=== PATIENT | male | born 1970 | race Two or more races ===

== ENCOUNTER 2024-06-09 12:07 | Inpatient (IN) | payer MEDICAID ==
[~2024-06-09] VITALS: Ht 182.9 cm; Wt 90.7 kg
[2024-06-09] MEDS ORDERED: ONDANSETRON 4 MG/2 ML VIAL ONE (13:08)
[2024-06-09] MEDS ORDERED: MORPHINE SULFATE 4 MG/1 ML DISP.SYRIN ONE (13:08)
[2024-06-09] MEDS: IV NORMAL SALINE 1000 ML BAG IV ONE (13:25)
[2024-06-09] MEDS: ONDANSETRON 4 MG/2 ML VIAL IV ONE (13:26)
[2024-06-09] MEDS: MORPHINE SULFATE 2 MG/1 ML DISP.SYRIN IV ONE (13:26)
[2024-06-09 14:01] LABS: CALCIUM 9.3 mg/dL (8.5-10.1); CREATININE 0.7 mg/dL (0.6-1.3); POTASSIUM 3.5 mmol/L (3.5-5.1)
[2024-06-09 14:07] LABS: BILIRUBIN,DIRECT 0.2 mg/dL (0.0-0.2); BILIRUBIN,TOTAL 0.4 mg/dL (0.2-1.0); TOTAL PROTEIN, SERUM 7.8 g/dL (6.4-8.2)
[2024-06-09 14:08] LABS: BASOPHILS # (AUTO) 0.1 K/UL (0.0-0.2); BASOPHILS % (AUTO) 1.3 % (0.0-2.0); DIFFERENTIAL COMMENT 0; EOSINOPHILS # (AUTO) 0.2 K/uL (0.0-0.7); EOSINOPHILS % (AUTO) 1.9 % (0.0-7.0); HEMATOCRIT 31.2 % (36.7-47.1); HEMOGLOBIN 10.4 g/dL (12.5-16.3); LYMPHOCYTES % (AUTO) 22.9 % (20.5-51.5); MEAN CORPUSCULAR HEMOGLOBIN 26.6 uug (23.8-33.4); MEAN CORPUSCULAR HGB CONC 33 g/dL (32.5-36.3); MEAN CORPUSCULAR VOLUME 79.9 fL (73.0-96.2); MONOCYTES # (AUTO) 0.9 K/uL (0.1-1.30); MONOCYTES % (AUTO) 9.8 % (0.0-11.0); NEUTROPHILS # (AUTO) 5.7 K/uL (1.8-8.9); NEUTROPHILS % (AUTO) 64.1 % (38.5-71.5); RED CELL DISTRIBUTION WIDTH 17.9 % (12.1-16.2); WHITE BLOOD COUNT (AUTO) 8.8 K/uL (3.6-10.2)
[2024-06-09 14:39] LABS: *BILIRUBIN,URIN NEGATIVE (NEGATIVE); *BLOOD, URINE NEGATIVE (NEGATIVE); *CLARITY,URINE CLEAR (CLEAR); *COLOR,URINE YELLOW (YELLOW); *KETONES,URINE NEGATIVE (NEGATIVE); *PROTEIN,URINE NEGATIVE (NEGATIVE); *UROBILINOGEN,URINE 0.2 E.U./dl (NORMAL); LEUKOCYTE ESTERASE ,URINE NEGATIVE (NEGATIVE); NITRITE, URINE NEGATIVE (NEGATIVE); PH,URINE 6.5 (5.0-8.0); UGLUCOSE NEGATIVE (NEGATIVE)
[2024-06-09 14:43] LABS: PLATELET COUNT (AUTO) 1106 K/uL (152-348)
[2024-06-09 14:48] LABS: LYMPHOCYTES % (MANUAL) 0 % (20-40); NEUTROPHILS % (MANUAL) 0 % (42-75)
[2024-06-09] MEDS ORDERED: ONDANSETRON 4 MG/2 ML VIAL IV PRN (21:15)
[2024-06-09] MEDS ORDERED: ZOLPIDEM 5 MG TABLET PO PRN (21:15)
[2024-06-09] MEDS: METOPROLOL TARTRATE 50 MG TABLET PO SCH (21:56)
[2024-06-10] VITALS: BP 148/68; TEMP 99; O2SAT 95
[2024-06-10] MEDS: HYDROCODONE/APAP 5-325MG TABLET PO PRN
[2024-06-10 06:00] VITALS: BP 123/56; TEMP 98.2; O2SAT 100
[2024-06-10] MEDS: PANTOPRAZOLE SODIUM 40 MG TABLET.DR PO SCH (07:27)
[2024-06-10 07:53] LABS: BASOPHILS # (AUTO) 0.1 K/UL (0.0-0.2); BASOPHILS % (AUTO) 1.4 % (0.0-2.0); EOSINOPHILS # (AUTO) 0.2 K/uL (0.0-0.7); EOSINOPHILS % (AUTO) 2.9 % (0.0-7.0); HEMATOCRIT 32.6 % (36.7-47.1); HEMOGLOBIN 10.6 g/dL (12.5-16.3); LYMPHOCYTES # (AUTO) 1.9 K/uL (0.8-4.8); LYMPHOCYTES % (AUTO) 22.1 % (20.5-51.5); MEAN CORPUSCULAR HEMOGLOBIN 26.3 uug (23.8-33.4); MEAN CORPUSCULAR HGB CONC 33 g/dL (32.5-36.3); MEAN CORPUSCULAR VOLUME 80.8 fL (73.0-96.2); MONOCYTES % (AUTO) 11.8 % (0.0-11.0); NEUTROPHILS # (AUTO) 5.2 K/uL (1.8-8.9); NEUTROPHILS % (AUTO) 61.8 % (38.5-71.5); RED BLOOD CELL COUNT(AUTO) 4.04 MIL/uL (4.06-5.63); RED CELL DISTRIBUTION WIDTH 18.2 % (12.1-16.2); WHITE BLOOD COUNT (AUTO) 8.4 K/uL (3.6-10.2)
[2024-06-10 08:03] VITALS: BP 117/62; TEMP 98.1; O2SAT 98
[2024-06-10] MEDS: POTASSIUM CHLORIDE 20 MEQ in IV NS 1000 ML 1,000 ML IV PRN (08:11)
[2024-06-10 08:13] LABS: THYROID STIMULATING HORMONE 2.076 mIU/mL (0.358-3.740)
[2024-06-10 08:15] LABS: DIFFERENTIAL COMMENT 1; PLATELET COUNT (AUTO) 1102 K/uL (152-348)
[2024-06-10 08:17] LABS: ALBUMIN 2.9 g/dL (3.4-5.0); BILIRUBIN,TOTAL 0.4 mg/dL (0.2-1.0); CALCIUM 9.7 mg/dL (8.5-10.1); CREATININE 0.7 mg/dL (0.6-1.3); MAGNESIUM 1.8 mg/dL (1.8-2.4); PHOSPHOROUS 5.3 mg/dL (2.5-4.9); TOTAL PROTEIN, SERUM 7.9 g/dL (6.4-8.2)
[2024-06-10 10:36] LABS: NEUTROPHILS % (MANUAL) 60 % (42-75)
[2024-06-10 10:37] LABS: EOSINOPHILS % (MANUAL) 3 % (0-8); LYMPHOCYTES % (MANUAL) 30 % (20-40); MONOCYTES % (MANUAL) 7 % (2-10); PLATELET ESTIMATE MARKED INCREASED
[2024-06-10 11:28] VITALS: BP 136/76; TEMP 97.9; O2SAT 98
[2024-06-10 15:02] VITALS: BP 141/81; TEMP 97.9; O2SAT 99
[2024-06-10] MEDS ORDERED: ROSU10TA2 GT (18:30)
[2024-06-10] MEDS ORDERED: METF-440 PO (18:30)
[2024-06-10] MEDS ORDERED: AMLO-212 PO (18:30)
[2024-06-10] MEDS ORDERED: METO100T14 PO (18:30)
[2024-06-10] MEDS ORDERED: EMPA25TA PO (18:30)
[2024-06-10] MEDS ORDERED: ASPIRIN 81 MG TAB.CHEW GT SCH (18:45)
[2024-06-10 20:00] VITALS: BP 122/52; TEMP 98.3; O2SAT 97
[2024-06-10] MEDS ORDERED: Medication Not On Formulary EA (Rosuvastatin Calcium (Crestor) 10 MG) GT SCH (21:00)
[2024-06-10] MEDS: ATORVASTATIN 20 MG TABLET PO SCH (22:01)
[2024-06-10] MEDS: ASPIRIN 81 MG TAB.CHEW PO SCH (22:01)
[2024-06-10] MEDS: DOCUSATE SODIUM 100 MG CAPSULE PO SCH (22:02)
[2024-06-10] MEDS: HYDROXYUREA 500 MG CAPSULE PO SCH (22:03)
[2024-06-11] MEDS: MAGNESIUM HYDROXIDE 30 ML LIQUID UDC PO PRN (00:07)
[2024-06-11 06:00] VITALS: BP 145/82; TEMP 97.4; O2SAT 98
[2024-06-11 07:34] LABS: BASOPHILS # (AUTO) 0.1 K/UL (0.0-0.2); BASOPHILS % (AUTO) 1.4 % (0.0-2.0); EOSINOPHILS # (AUTO) 0.3 K/uL (0.0-0.7); EOSINOPHILS % (AUTO) 4.7 % (0.0-7.0); HEMATOCRIT 31.8 % (36.7-47.1); HEMOGLOBIN 10.7 g/dL (12.5-16.3); LYMPHOCYTES # (AUTO) 1.6 K/uL (0.8-4.8); LYMPHOCYTES % (AUTO) 25.2 % (20.5-51.5); MEAN CORPUSCULAR HEMOGLOBIN 26.9 uug (23.8-33.4); MEAN CORPUSCULAR HGB CONC 34 g/dL (32.5-36.3); MEAN CORPUSCULAR VOLUME 79.7 fL (73.0-96.2); MONOCYTES # (AUTO) 0.8 K/uL (0.1-1.30); NEUTROPHILS # (AUTO) 3.7 K/uL (1.8-8.9); NEUTROPHILS % (AUTO) 56.7 % (38.5-71.5); PLATELET COUNT (AUTO) 999 K/uL (152-348); RED BLOOD CELL COUNT(AUTO) 3.99 MIL/uL (4.06-5.63); RED CELL DISTRIBUTION WIDTH 18.2 % (12.1-16.2); WHITE BLOOD COUNT (AUTO) 6.5 K/uL (3.6-10.2)
[2024-06-11 07:35] LABS: DIFFERENTIAL COMMENT 1
[2024-06-11 07:49] LABS: CARBON DIOXIDE 25 mmol/L (21-32); CHLORIDE 101 mmol/L (98-107); CREATININE 0.6 mg/dL (0.6-1.3); GLUCOSE 71 mg/dL (74-106); SODIUM SERUM 137 mmol/L (136-145); UREA NITROGEN, BLOOD 3 mg/dL (7-18)
[2024-06-11 08:06] LABS: HIV-1 p24 ANTIGEN NON REACTIVE (NONREACTIVE); HIV-1/2 ANTIBODY NON REACTIVE (NONREACTIVE)
[2024-06-11 08:19] LABS: MAGNESIUM 1.8 mg/dL (1.8-2.4); PHOSPHOROUS 5.9 mg/dL (2.5-4.9)
[2024-06-11 08:23] LABS: *RHEUMATOID FACTOR SCREEN NEGATIVE (NEGATIVE)
[2024-06-11] MEDS: AMLODIPINE 5 MG TABLET PO SCH (08:24)
[2024-06-11] MEDS: METFORMIN HCL 500 MG TABLET PO SCH (08:24)
[2024-06-11 08:27] LABS: C-REACTIVE PROTEIN 10.31 mg/dL (0.00-0.30)
[2024-06-11 11:12] VITALS: BP 156/84; TEMP 99.5; O2SAT 98
[2024-06-11] MEDS: MEDIHONEY= THERAHONEY 1.5 OZ TUBE TOP SCH (13:33)
[2024-06-11 13:43] LABS: FREE PSA 0.09 ng/mL (0.00-45); PROSTATE SPECIFIC ANTIGEN 0.81 ng/mL (0.00-4.00)
[2024-06-11 16:23] VITALS: BP 153/96; TEMP 99.4; O2SAT 100
[2024-06-11 19:00] VITALS: BP 157/84; TEMP 98.3; O2SAT 98
[2024-06-11] MEDS: ALLOPURINOL 100 MG TABLET PO SCH (19:37)
[2024-06-12 05:19] LABS: *OCCULT BLOOD STOOL NEGATIVE (NEGATIVE)
[2024-06-12 05:34] VITALS: BP 147/76; TEMP 99.1; O2SAT 99
[2024-06-12 06:13] LABS: BASOPHILS # (AUTO) 0.1 K/UL (0.0-0.2); BASOPHILS % (AUTO) 1.1 % (0.0-2.0); EOSINOPHILS # (AUTO) 0.3 K/uL (0.0-0.7); EOSINOPHILS % (AUTO) 3.6 % (0.0-7.0); HEMATOCRIT 31.6 % (36.7-47.1); HEMOGLOBIN 10.3 g/dL (12.5-16.3); LYMPHOCYTES # (AUTO) 1.8 K/uL (0.8-4.8); LYMPHOCYTES % (AUTO) 20.2 % (20.5-51.5); MEAN CORPUSCULAR HEMOGLOBIN 26.2 uug (23.8-33.4); MEAN CORPUSCULAR HGB CONC 33 g/dL (32.5-36.3); MEAN CORPUSCULAR VOLUME 80.4 fL (73.0-96.2); MONOCYTES # (AUTO) 1.1 K/uL (0.1-1.30); MONOCYTES % (AUTO) 12.1 % (0.0-11.0); NEUTROPHILS # (AUTO) 5.6 K/uL (1.8-8.9); PLATELET COUNT (AUTO) 964 K/uL (152-348); RED BLOOD CELL COUNT(AUTO) 3.93 MIL/uL (4.06-5.63); RED CELL DISTRIBUTION WIDTH 18.4 % (12.1-16.2); WHITE BLOOD COUNT (AUTO) 8.9 K/uL (3.6-10.2)
[2024-06-12 06:27] LABS: DIFFERENTIAL COMMENT 1
[2024-06-12 06:38] LABS: CALCIUM 9.4 mg/dL (8.5-10.1); CREATININE 0.7 mg/dL (0.6-1.3); POTASSIUM 4.3 mmol/L (3.5-5.1)
[2024-06-12 08:10] LABS: *IMMUNOGLOBULIN G, SERUM 1469 mg/dL (603-1613); IMMUNOGLOBULIN A, SERUM 365 mg/dL (90-386); IMMUNOGLOBULIN M, SERUM 49 mg/dL (20-172)
[2024-06-12] MEDS: VALSARTAN 80 MG TABLET PO SCH (09:59)
[2024-06-12 10:06] LABS: *ANTI-SCLERODERMA-70 AB <0.2 AI (0.0-0.9); *RNP ANTIBODIES <0.2 AI (0.0-0.9); *SJOGREN'S ANTI-SS-A <0.2 AI (0.0-0.9); *SJOGREN'S ANTI-SS-B <0.2 AI (0.0-0.9); *SMITH ANTIBODIES <0.2 AI (0.0-0.9); ANTI-DNA(DS) AB, QN 5 IU/mL (0-9); ANTI-NUCLEAR AB DIRECT Negative (Negative); CARCINOEMBRYONIC AG (CEA) 0.7 ng/mL (0.0-4.7); FOLATE (FOLIC ACID), SERUM 9.6 ng/mL (>3.0)
[2024-06-12 12:07] LABS: FREE KAPPA LT CHAINS SERUM 36.6 mg/L (3.3-19.4); KAPPA/LAMBDA RATIO SERUM 1.02 (0.26-1.65)
[2024-06-12 15:50] VITALS: BP 139/81; TEMP 99.9; O2SAT 98
[2024-06-12] MEDS: ACETAMINOPHEN 325 MG TABLET PO PRN (17:23)
[2024-06-12 19:53] LABS: BAND % (MANUAL) 2 % (0-10); EOSINOPHILS % (MANUAL) 3 % (0-8); LYMPHOCYTES % (MANUAL) 22 % (20-40); MONOCYTES % (MANUAL) 11 % (2-10); NEUTROPHILS % (MANUAL) 62 % (42-75); PLATELET ESTIMATE MARKED INCREASED
[2024-06-12 19:54] LABS: ANISOCYTOSIS 2+
[2024-06-12 19:55] LABS: HYPOCHROMASIA 1+; OVALOCYTES OCC
[2024-06-12 20:01] VITALS: BP 139/76; TEMP 99.1
[2024-06-12] MEDS: DEXAMETHASONE SOD PHOSPHATE 4 MG INJ IV ONE (20:25)
[2024-06-12] MEDS ORDERED: HYDROCODONE/APAP 10-325 MG TABLET PO PRN (20:30)
[2024-06-12] MEDS: COLCHICINE 0.6 MG TABLET PO SCH (21:34)
[2024-06-13 06:29] VITALS: BP 135/75; TEMP 98.7; O2SAT 97
[2024-06-13 06:41] LABS: ALBUMIN 2.6 g/dL (3.4-5.0); BASOPHILS % (AUTO) 0.2 % (0.0-2.0); BILIRUBIN,TOTAL 0.5 mg/dL (0.2-1.0); CALCIUM 9.2 mg/dL (8.5-10.1); CREATININE 0.7 mg/dL (0.6-1.3); HEMATOCRIT 31.5 % (36.7-47.1); HEMOGLOBIN 10.5 g/dL (12.5-16.3); LYMPHOCYTES # (AUTO) 0.6 K/uL (0.8-4.8); LYMPHOCYTES % (AUTO) 8.6 % (20.5-51.5); MEAN CORPUSCULAR HEMOGLOBIN 26.7 uug (23.8-33.4); MEAN CORPUSCULAR HGB CONC 33 g/dL (32.5-36.3); MEAN CORPUSCULAR VOLUME 80.2 fL (73.0-96.2); MONOCYTES # (AUTO) 0.1 K/uL (0.1-1.30); MONOCYTES % (AUTO) 1.5 % (0.0-11.0); NEUTROPHILS # (AUTO) 6.6 K/uL (1.8-8.9); NEUTROPHILS % (AUTO) 89.7 % (38.5-71.5); PLATELET COUNT (AUTO) 961 K/uL (152-348); POTASSIUM 4.6 mmol/L (3.5-5.1); RED BLOOD CELL COUNT(AUTO) 3.93 MIL/uL (4.06-5.63); RED CELL DISTRIBUTION WIDTH 18.3 % (12.1-16.2); TOTAL PROTEIN, SERUM 7.8 g/dL (6.4-8.2); WHITE BLOOD COUNT (AUTO) 7.4 K/uL (3.6-10.2)
[2024-06-13 06:57] LABS: DIFFERENTIAL COMMENT 1
[2024-06-13 07:27] LABS: URIC ACID 7.2 mg/dL (3.5-7.2)
[2024-06-13] MEDS: ARGININE/GLUTAMINE/CALCIUM BMB 1 EACH POWD.PACK PO SCH (08:32)
[2024-06-13 12:00] VITALS: BP 128/76; TEMP 98.7; O2SAT 98
[2024-06-13 19:14] VITALS: BP 135/76; TEMP 98.3; O2SAT 96
[2024-06-13] MEDS: DEXAMETHASONE SOD PHOSPHATE 4 MG INJ IV ONE (19:28)
[2024-06-14 06:47] VITALS: BP 135/75; TEMP 98.3; O2SAT 97
[2024-06-14 08:27] VITALS: BP 140/83; TEMP 98.2; O2SAT 98
[2024-06-14 11:37] VITALS: BP 140/80; TEMP 98; O2SAT 97
[2024-06-14 16:00] VITALS: BP 145/82; TEMP 98.3; O2SAT 97
[2024-06-14 20:11] VITALS: BP 134/81; TEMP 98.7; O2SAT 97
[2024-06-15 04:00] VITALS: BP 142/81; TEMP 98.7; O2SAT 97
[2024-06-15 07:08] LABS: A/G RATIO 0.7 (0.7-1.7); ALBUMIN 2.8 g/dL (2.9-4.4); ALPHA-1-GLOBULIN 0.4 g/dL (0.0-0.4); ALPHA-2-GLOBULIN 0.8 g/dL (0.4-1.0); BETA GLOBULIN 1.1 g/dL (0.7-1.3); GAMMA GLOBULIN 1.4 g/dL (0.4-1.8); GLOBULIN, TOTAL 3.8 g/dL (2.2-3.9); M-SPIKE Not Observed g/dL (Not Observed)
[2024-06-15] MEDS ORDERED: methylPREDNISolone SOD SUCC 40 MG/ML VIAL IV ONE (10:00)
[2024-06-15] MEDS ORDERED: METO50TA16 PO (15:44)
[2024-06-15] MEDS ORDERED: ACET325T53 PO (15:44)
[2024-06-15] MEDS ORDERED: VALS80TA31 PO (15:44)
[2024-06-15] MEDS ORDERED: ZOLP5TAB2 PO (15:44)
[2024-06-15] MEDS ORDERED: NUTR1PAC14 PO (15:44)
[2024-06-15] MEDS ORDERED: ZINC220T4 PO (15:44)
[2024-06-15] MEDS ORDERED: HYDR-4209 PO (15:44)
[2024-06-15] MEDS ORDERED: MENT113O TOP (15:44)
[2024-06-15] MEDS ORDERED: PANT40TA49 PO (15:44)
[2024-06-15] MEDS ORDERED: ASCO500C18 PO (15:44)
[2024-06-15] MEDS ORDERED: MAGN400O6 PO (15:44)
[2024-06-15] MEDS ORDERED: ASPI81TA31 PO (15:44)
[2024-06-15] MEDS ORDERED: DOCU-141 PO (15:44)
[2024-06-15] MEDS ORDERED: ALLO100T PO (15:44)
[2024-06-15] MEDS ORDERED: HYDR500C PO (15:44)
[2024-06-15] MEDS ORDERED: ATOR20TA PO (15:44)
[2024-06-15 16:09] VITALS: BP 120/60; TEMP 98.2; O2SAT 99
== END 2024-06-15 19:20 | DRG 694 ==
LOC: ER 12:07 → TELE3 20:01 → MEDSURG3 06-10 09:55
PROVIDERS: ADMIT Internal Medicine; ATTEND Internal Medicine
PROC: 05HB33Z Insertion of Infusion Device into Right Basilic Vein, Percutaneous Approach (ICD-10-PCS; principal; 2024-06-10)
DX: D47.3 Essential (hemorrhagic) thrombocythemia (principal); D68.59 Other primary thrombophilia; E44.0 Moderate protein-calorie malnutrition; E87.1 Hypo-osmolality and hyponatremia; E11.42 Type 2 diabetes mellitus with diabetic polyneuropathy; I69.354 Hemiplegia and hemiparesis following cerebral infarction affecting left non-dominant side; E88.09 Other disorders of plasma-protein metabolism, not elsewhere classified; L97.821 Non-pressure chronic ulcer of other part of left lower leg limited to breakdown of skin; D50.9 Iron deficiency anemia, unspecified; N13.8 Other obstructive and reflux uropathy; R62.7 Adult failure to thrive; E86.0 Dehydration; D75.839 Thrombocytosis, unspecified; Z74.09 Other reduced mobility; Z68.27 Body mass index [BMI] 27.0-27.9, adult; K80.20 Calculus of gallbladder without cholecystitis without obstruction; M15.9 Polyosteoarthritis, unspecified; M10.9 Gout, unspecified; Z74.01 Bed confinement status; S81.812A Laceration without foreign body, left lower leg, initial encounter; W22.8XXA Striking against or struck by other objects, initial encounter; Y92.89 Other specified places as the place of occurrence of the external cause; D72.821 Monocytosis (symptomatic); N40.1 Benign prostatic hyperplasia with lower urinary tract symptoms; M51.36 Other intervertebral disc degeneration, lumbar region; E78.5 Hyperlipidemia, unspecified; L90.5 Scar conditions and fibrosis of skin; Z91.81 History of falling; Z79.82 Long term (current) use of aspirin; R14.1 Gas pain; I10 Essential (primary) hypertension
CPT/HCPCS: 36415; 70030-TC; 71045; 73610; 82378; 82746; 82784; 83550; 83690; 83735; 84100; 84153; 84155; 84165; 84443; 84550; 85025; 85610; 86038; 86140; 86334; 86430; 86706; 86803; 87340; 87806; 88185; 93005; A6209; A6213; G0378; J1100; J2270; J2405; J3480; J7040; J8499